=== PATIENT | male | born 1970 | race Caucasian/White ===

== ENCOUNTER 2017-01-18 08:22 | Emergency (ER) | payer OTHER ==
[2017-01-18] MEDS ORDERED: KETOROLAC TROMETHAMINE 60 MG/2 ML SDV IM ONE (09:32)
--- NOTE | 2017-01-18 09:35 | ER Document Report ---
ED General - General Chief Complaint: Abdominal Pain Stated Complaint: ABDOMINAL PAIN Time Seen by Provider: 01/18/17 09:04 Mode of Arrival: Ambulatory Information source: Patient, Parent Notes: Patient presents to the emergency department with complaints of lower abdominal pain thinking of possible kidney stone. Reports history of kidney stones a few years ago. Reports this pain started a couple days ago. Reports that spasms comes and goes. When it comes to 5/5. Reports some nausea with it denies fever vomiting diarrhea. Reports last bowel movement was yesterday but very small amount. Reports he has not had a normal bowel movement for 3 weeks. Mother reports patient has memory issues. She reports when he was younger he probably had aspbergers but was never diagnosed. Denies TBI or drug abuse. TRAVEL OUTSIDE OF THE [place] IN LAST 30 DAYS: No - Related Data Allergies/Adverse Reactions: No Known Allergies Allergy (Unverified 01/18/17 08:28) Past Medical History - General Information source: Patient - Social History Smoking Status: Unknown if Ever Smoked Cigarette use (# per day): No Frequency of alcohol use: Occasional Drug Abuse: Marijuana Lives with: Family Family History: None Patient has suicidal ideation: No Patient has homicidal ideation: No - Medical History Medical History: Negative Renal/ Medical History: Reports: Hx Kidney Stones. Denies: Hx Peritoneal Dialysis Past Surgical History: Reports: Other - hernia repair Physical Exam - Vital signs Vitals: Temp Pulse Resp BP Pulse Ox 98.5 F 93 20 155/95 H 98 01/18/17 08:27 01/18/17 08:27 01/18/17 08:27 01/18/17 08:27 01/18/17 08:27 - Notes Notes: PHYSICAL EXAMINATION: GENERAL: Well-appearing and in no acute distress NONTOXIC LOOKING HEAD: Atraumatic, normocephalic. EYES: Pupils equal round and reactive to light, extraocular movements intact, sclera anicteric, conjunctiva are normal. ENT: nares patent, oropharynx clear without exudates. Moist mucous membranes. NECK: Normal range of motion, supple without lymphadenopathy LUNGS: CTAB and equal. No wheezes rales or rhonchi. HEART: Regular rate and rhythm without murmurs ABDOMEN: Soft, LLQ tenderness. No guarding, no rebound BACK: Denies pain EXTREMITIES: Normal range of motion, no pitting edema. No cyanosis. NEUROLOGICAL: Cranial nerves grossly intact. Normal sensory/motor exams. PSYCH: Normal mood, normal affect. SKIN: Warm, Dry, normal turgor, no rashes or lesions noted Course - Re-evaluation Re-evalutation: 01/18/17 14:52 WBC 13.8, CT shows colitis possible diverticulitis. Patient does not admit to eating any recent fevers or varies. Patient reports he had a large bowel movement and his belly feels much better. Patient instructed on CT results plan of CARE Cipro Flagyl pain medication and the importance of follow-up with GI. Both mother and patient verbalized understanding. - Vital Signs Vital signs: Temp Pulse Resp BP Pulse Ox 100.0 F 86 19 130/80 H 98 01/18/17 13:04 01/18/17 13:04 01/18/17 13:04 01/18/17 13:04 01/18/17 13:04 - Laboratory Result Diagrams: 01/18/17 09:30 01/18/17 09:30 Laboratory results interpreted by me: 01/18/17 01/18/17 09:30 09:30 WBC 13.8 H RDW 14.2 H Seg Neutrophils % 85.4 H Lymphocytes % 6.7 L Absolute Neutrophils 11.8 H Urine Protein 30 H Urine Ketones TRACE H - Diagnostic Test Radiology reviewed: Image reviewed, Reports reviewed - Diagnostic report text EXAM DESCRIPTION: CT ABD/PELVIS WITH IV ORAL COMPLETED DATE/TIME: 01/18/2017 1 :57 pm REASON FOR STUDY: ABD PAIN LLQ COMPARISON: None. TECHNIQUE: CT scan of the abdomen and pelvis performed using helical scanning technique with dynamic intravenous contrast injection. Patient drank oral contrast. Images reviewed with lung, soft tissue, and bone windows. Reconstructed coronal and sagittal MPR images reviewed. Delayed images for evaluation of the urinary system also acquired. All images stored on PACS. All CT scanners at this facility use dose modulation, iterative reconstruction, and/or weight based dosing when appropriate to reduce radiation dose to as low as reasonably achievable (ALARA). [facility]: Dose Right [facility]: CareDose [facility]: Dose Right [facility]: Teradose 4D [facility]: [place] CONTRAST TYPE AND DOSE: 94mL Isovue 370- low osmolar. RENAL FUNCTION: Creatinine 0.7 RADIATION DOSE: 30.77mGy. LIMITATIONS: None. FINDINGS: A 15 cm long segment of marked colon wall thickening and luminal narrowing is present along the distal descending and proximal sigmoid colon. This is worrisome for acute diverticulitis or colitis from infectious or inflammatory etiology. Ischemic colitis is considered unlikely. There is adjacent trace cul-de-sac fluid and diffuse surrounding inflammation in the pericolic fat. No discrete abscess. No free intraperitoneal air. No evidence of bowel obstruction. These changes are best shown on coronal images 27-41, and axial images 66-77. LOWER CHEST: No significant findings. No nodules or infiltrates. LIVER: Normal size. No masses or dilated ducts. SPLEEN : Normal size. No focal lesions. PANCREAS: No masses. No significant calcifications. No adjacent inflammation or peripancreatic fluid collections. Pancreatic duct not dilated. GALLBLADDER: No identified stones by CT criteria. No inflammatory changes to suggest cholecystitis. ADRENAL GLANDS: No significant masses or asymmetry. RIGHT KIDNEY AND URETER: No solid masses. No significant calcifications. No hydronephrosis or hydroureter. LEFT KIDNEY AND URETER: No solid masses. No significant calcifications. No hydronephrosis or hydroureter. AORTA AND VESSELS: No aneurysm. No dissection. Renal arteries, SMA , celiac without stenosis. RETROPERITONEUM: No retroperitoneal adenopathy, hemorrhage or masses. BOWEL AND PERITONEAL CAVITY: Distal descending and proximal sigmoid colon wall thickening, luminal narrowing, surrounding inflammatory change worrisome for short segment of colitis or diverticulitis. No adjacent abscess or free intraperitoneal air. Small amount of cul-de-sac fluid. Oral contrast is seen throughout the remainder of the gastrointestinal tract without evidence of bowel obstruction. APPENDIX: Normal. PELVIS: Pelvic colon inflammatory change with cul-de-sac fluid as above. No adenopathy. Bladder unremarkable. ABDOMINAL WALL: No masses. No hernias. BONES: No significant or acute findings. OTHER: No other significant finding. IMPRESSION: Distal descending/ proximal sigmoid colon wall thickening, luminal narrowing, and surrounding inflammatory changes from colitis, likely due to diverticular disease. Infectious or inflammatory colitis is also possible. Ischemic colitis considered unlikely Discharge - Discharge Clinical Impression: Colitis, Elevated blood pressure reading Abdominal pain Qualifiers: Abdominal location: left lower quadrant Qualified Code(s): R10.32 - Left lower quadrant pain Condition: Stable Disposition: HOME, SELF-CARE Instructions: Oral Narcotic Medication ([facility]), Colitis, Nonspecific ([facility]), Ciprofloxacin ([facility]), Metronidazole ([facility]), Gastroenterology Additional Instructions: *You have been evaluated for abdominal pain, Colitis *Take medication as prescribed *avoid foods with nuts, seeds *Follow up with a primary care provider within one week *Follow up with gastroenterology for evaluation *Return to ED for worsening condition, changes, needs, concerns *Return to ED if not better in 24 hours *Monitor your blood pressure. Your blood pressure was elevated today. This may be because you were anxious, in pain or because you need medication. It is important to follow up with your primary care provider for full evaluation. Prescriptions: Ciprofloxacin HCl [Cipro 500 mg Tablet] 500 mg PO BID #20 tablet Metronidazole [Flagyl 500 mg Tablet] 500 mg PO TID #21 tablet Oxycodone HCl/Acetaminophen [Percocet 5-325 mg Tablet] 1 - 2 tab PO ASDIR PRN # 15 tablet PRN Reason: Forms: Elevated Blood Pressure
[2017-01-18 09:44] LABS: ABSOLUTE BASOPHILS # (AUTO) 0.1 10^3/uL (0.0-0.2); ABSOLUTE LYMPHOCYTES (AUTO) 0.9 10^3/uL (0.5-4.7); ABSOLUTE NEUT (AUTO) 11.8 10^3/uL (1.7-8.2); BASOPHILS % (AUTO) 0.5 % (0-2); EOSINOPHILS % (AUTO) 0.3 % (0-6); HEMATOCRIT 42.4 % (37.9-51.0); HEMOGLOBIN 14.2 g/dL (13.5-17.0); HGB HCT DIFFERENCE 0.2; LYMPHOCYTES % (AUTO) 6.7 % (13-45); MEAN CORPUSCULAR HEMOGLOBIN 29.5 pg (27.0-33.4); MEAN CORPUSCULAR HGB CONC 33.5 g/dL (32.0-36.0); MEAN CORPUSCULAR VOLUME 88 fl (80-97); MONOCYTES % (AUTO) 7.1 % (3-13); RED BLOOD COUNT 4.81 10^6/uL (4.35-5.55); RED CELL DISTRIBUTION WIDTH 14.2 % (11.5-14.0); SEGMENTED NEUTROPHILS % (AUTO) 85.4 % (42-78); WHITE BLOOD COUNT 13.8 10^3/uL (4.0-10.5)
[2017-01-18 09:51] LABS: APPEARANCE,URINE CLEAR; BILIRUBIN,URINE NEGATIVE (NEGATIVE); GLUCOSE, URINE NEGATIVE (NEGATIVE); KETONES,URINE TRACE mg/dL (NEGATIVE); LEUKOCYTE ESTERASE,URINE NEGATIVE (NEGATIVE); NITRITE,URINE NEGATIVE (NEGATIVE); PROTEIN,URINE 30 mg/dL (NEGATIVE); URINE SPECIFIC GRAVITY 1.028; UROBILINOGEN,URINE NEGATIVE mg/dL (<2.0)
[2017-01-18 10:10] LABS: ALANINE AMINOTRANSFERASE 31 U/L (21-72); ALBUMIN 3.8 g/dL (3.5-5.0); ALKALINE PHOSPHATASE 68 U/L (38-126); ANION GAP 12 (5-19); ASPARTATE AMINO TRANSFERASE 17 U/L (17-59); BILIRUBIN,DIRECT 0.2 mg/dL (0.0-0.4); BLOOD UREA NITROGEN 11 mg/dL (7-20); CARBON DIOXIDE 26 mmol/L (22-30); CHLORIDE 103 mmol/L (98-107); CREATININE RESULT 0.68 mg/dL (0.52-1.25); GLUCOSE 109 mg/dL (75-110); LIPASE 119.6 U/L (23-300); POTASSIUM 4.2 mmol/L (3.6-5.0); SODIUM 141.4 mmol/L (137-145)
[2017-01-18] MEDS ORDERED: NORMAL SALINE 1000 ML 1,000 ML IV ONE (11:06)
--- NOTE | 2017-01-18 14:26 | RADIOLOGY REPORT (SQ) ---
EXAM DESCRIPTION: CT ABD/PELVIS WITH IV ORAL COMPLETED DATE/TIME: 01/18/2017 1:57 pm REASON FOR STUDY: ABD PAIN LLQ COMPARISON: None. TECHNIQUE: CT scan of the abdomen and pelvis performed using helical scanning technique with dynamic intravenous contrast injection. Patient drank oral contrast. Images reviewed with lung, soft tissue , and bone windows. Reconstructed coronal and sagittal MPR images reviewed. Delayed images for evalua tion of the urinary system also acquired. All images stored on PACS. All CT scanners at this facility use dose modulation, iterative reconstruction, and/or weight based d osing when appropriate to reduce radiation dose to as low as reasonably achievable (ALARA). [facility]: Dose Right [facility]: CareDose [facility]: Dose Right [facility]: Teradose 4D [facility]: [address] CONTRAST TYPE AND DOSE: 94mL Isovue 370- low osmolar. RENAL FUNCTION: Creatinine 0.7 RADIATION DOSE: 30.77mGy. LIMITATIONS: None. FINDINGS: A 15 cm long segment of marked colon wall thickening and luminal narrowing is present rebekah g the distal descending and proximal sigmoid colon. This is worrisome for acute diverticulitis or co litis from infectious or inflammatory etiology. Ischemic colitis is considered unlikely. There is a djacent trace cul-de-sac fluid and diffuse surrounding inflammation in the pericolic fat. No discret e abscess. No free intraperitoneal air. No evidence of bowel obstruction. These changes are best s hown on coronal images 27-41, and axial images 66-77. LOWER CHEST: No significant findings. No nodules or infiltrates. LIVER: Normal size. No masses or dilated ducts. SPLEEN: Normal size. No focal lesions. PANCREAS: No masses. No significant calcifications. No adjacent inflammation or peripancreatic fluid collections. Pancreatic duct not dilated. GALLBLADDER: No identified stones by CT criteria. No inflammatory changes to suggest cholecystitis. ADRENAL GLANDS: No significant masses or asymmetry. RIGHT KIDNEY AND URETER: No solid masses. No significant calcifications. No hydronephrosis or hyd roureter. LEFT KIDNEY AND URETER: No solid masses. No significant calcifications. No hydronephrosis or hydr oureter. AORTA AND VESSELS: No aneurysm. No dissection. Renal arteries, SMA, celiac without stenosis. RETROPERITONEUM: No retroperitoneal adenopathy, hemorrhage or masses. BOWEL AND PERITONEAL CAVITY: Distal descending and proximal sigmoid colon wall thickening, luminal na rrowing, surrounding inflammatory change worrisome for short segment of colitis or diverticulitis. N o adjacent abscess or free intraperitoneal air. Small amount of cul-de-sac fluid. Oral contrast is seen throughout the remainder of the gastrointestinal tract without evidence of bowel obstruction. APPENDIX: Normal. PELVIS: Pelvic colon inflammatory change with cul-de-sac fluid as above. No adenopathy. Bladder unr emarkable. ABDOMINAL WALL: No masses. No hernias. BONES: No significant or acute findings. OTHER: No other significant finding. IMPRESSION: Distal descending/ proximal sigmoid colon wall thickening, luminal narrowing, and surrou nding inflammatory changes from colitis, likely due to diverticular disease. Infectious or inflammat ory colitis is also possible. Ischemic colitis considered unlikely TECHNICAL DOCUMENTATION: JOB ID: [id number] Quality ID # [id number]: Final reports with documentation of one or more dose reduction techniques (e.g., Au tomated exposure control, adjustment of the mA and/or kV according to patient size, use of iterative reconstruction technique) 2010 [employer]- All Rights Reserved
[2017-01-18 15:27] VITALS: BP 148/80
== END 2017-01-18 15:27 | disposition home or self-care (01) ==
LOC: ER 08:22
DX: K52.9 Noninfective gastroenteritis and colitis, unspecified (principal); R03.0 Elevated blood-pressure reading, without diagnosis of hypertension; R10.32 Left lower quadrant pain; Z87.442 Personal history of urinary calculi
CPT/HCPCS: 99284; 96372; 96360; 36415; 83690; 85025; 80053; 81001; 74177; J1885; J7030

== ENCOUNTER 2020-01-21 12:15 | Emergency (ER) | payer OTHER ==
[2020-01-21] MEDS ORDERED: PIPERACILLIN SODIUM/TAZOBACTAM 4.5 GM in NORMAL SALINE 100 ML IV SCH (12:30)
--- NOTE | 2020-01-21 12:30 | ER Document Report ---
ED Medical Screen (RME) - General Chief Complaint: Abdominal Pain Stated Complaint: ABDOMINAL PAIN Time Seen by Provider: 01/21/20 12:28 Information source: Patient TRAVEL OUTSIDE OF THE [place] IN LAST 30 DAYS: No - HPI Patient complains to provider of: Abdominal pain feels like his heart is racing Onset/Duration: Intermittent, Persistent, Waxing and waning Notes: 01/21/20 12:28 There is a 49-year-old male with a history of colitis who is felt as though he had some constipation he then used some prune juice for that he had significant diarrhea last night he vomits every time he tries to take an oral fluid he is hypotensive tachycardic with a fever. And belly pain 01/21/20 12:29 I greeted and performed a rapid initial assessment of this patient. Comprehensive ED assessment and evaluation of the patient, analysis of test results and completion of the medical decision making process will be conducted by additional ED providers. - Related Data Allergies/Adverse Reactions: Iodinated Contrast Media Allergy (Verified 01/21/20 12:24) Past Medical History Renal/ Medical History: Reports: Hx Kidney Stones. Denies: Hx Peritoneal Dialysis Past Surgical History: Reports: Other - hernia repair Physical Exam - Vital signs Vitals: Temp Pulse Resp BP Pulse Ox 102.6 F H 110 H 20 126/75 H 97 01/21/20 12:01/21/20 12:01/21/20 12:01/21/20 12:01/21/20 12:22 Course - Vital Signs Vital signs: Temp Pulse Resp BP Pulse Ox 102.6 F H 110 H 20 126/75 H 97 01/21/20 12:22 01/21/20 12:01/21/20 12:01/21/20 12:01/21/20 12:22
[2020-01-21] MEDS ORDERED: NORMAL SALINE 1000 ML 1,000 ML IV PRN (12:33)
[2020-01-21] MEDS ORDERED: DIPHENHYDRAMINE HCL 50 MG/ML VIAL IV ONE (13:24)
[2020-01-21] MEDS ORDERED: METHYLPREDNISOLONE INJ 40 MG/1 ML SDV IV ONE (13:24)
[2020-01-21] MEDS ORDERED: ACETAMINOPHEN 650 MG SUPP.RECT PR ONE (13:25)
[2020-01-21] MEDS ORDERED: FAMOTIDINE INJ/PF 20 MG/2 ML SDV IV ONE (13:25)
[2020-01-21 13:36] LABS: HEMOGLOBIN 13.5 g/dL (13.5-17.0); MEAN CORPUSCULAR HEMOGLOBIN 30.5 pg (27.0-33.4); MEAN CORPUSCULAR HGB CONC 34.6 g/dL (32.0-36.0); MEAN CORPUSCULAR VOLUME 88 fl (80-97); PLATELET COUNT 372 10^3/uL (150-450); RED BLOOD COUNT 4.42 10^6/uL (4.35-5.55); RED CELL DISTRIBUTION WIDTH 12.9 % (11.5-14.0); WHITE BLOOD COUNT 19.8 10^3/uL (4.0-10.5)
[2020-01-21] MEDS ORDERED: ONDANSETRON HCL INJ/PF 4 MG/2 ML SDV IV ONE (13:38)
--- NOTE | 2020-01-21 13:41 | ER Document Report ---
ED GI/ - General Chief Complaint: Abdominal Pain Stated Complaint: ABDOMINAL PAIN Time Seen by Provider: 01/21/20 12:28 Notes: CHIEF COMPLAINT: Abdominal pain and fever HPI: 49-year-old male with history of colitis and kidney stones presenting to the emergency department complaining of intermittent lower abdominal pain over the last 3 weeks after [place] the [place]. Has had intermittent episodes of diarrhea. Patient states initially he felt constipated so he has been taking prune juice every day. Has had intermittent fevers over the last 3 weeks. Has not seen a PCP for evaluation of symptoms. States that he was diagnosed with colitis 3 years ago but did see a rn military at that time and had a colonoscopy that he states was normal. ROS: See HPI - all other systems were reviewed and are otherwise negative Constitutional: Positive fever Eyes: no drainage, no blurred vision ENT: no runny nose, no sore throat Cardiovascular: no chest pain Resp: no SOB, no cough GI: no vomiting, positive diarrhea, positive abdominal pain : no dysuria Integumentary: no rash Allergy: no hives Musculoskeletal: no extremity pain or swelling Neurological: no numbness/tingling, no weakness MEDICATIONS: I agree with the patient medications as charted by the RN. ALLERGIES: I agree with the allergies as charted by the RN. PAST MEDICAL HISTORY/PAST SURGICAL HISTORY: Reviewed and agree as charted by RN. SOCIAL HISTORY: Reviewed and agree as charted by RN. FAMILY HISTORY: No significant familial comorbid conditions directly related to patient complaint EXAM: Reviewed vital signs as charted by RN. CONSTITUTIONAL: Alert and oriented and responds appropriately to questions. Well-appearing; well-nourished HEAD: Normocephalic; atraumatic EYES: PERRL; Conjunctivae clear, sclerae non-icteric ENT: normal nose; no rhinorrhea; moist mucous membranes; pharynx without lesions noted, no uvula edema or deviation, no tonsillar hypertrophy, phonation normal NECK: Supple without meningismus; non-tender; no cervical lymphadenopathy, no masses CARD: Mild tachycardia; no murmurs, no clicks, no rubs, no gallops; symmetric distal pulses RESP: Normal chest excursion without splinting or tachypnea; breath sounds clear and equal bilaterally; no wheezes, no rhonchi, no rales, pulse oximetry 98% on room air not hypoxic ABD/GI: Normal bowel sounds; non-distended; soft, mild tenderness in the right lower quadrant and suprapubic region on palpation, no rebound, no guarding; no palpable organomegaly or masses. BACK: The back appears normal and is non-tender to palpation, there is no CVA tenderness EXT: Normal ROM in all joints; non-tender to palpation; no cyanosis, no effusions, no edema SKIN: Normal color for age and race; warm; dry; good turgor; no acute lesions noted NEURO: Moves all extremities equally; Motor and sensory function intact PSYCH: The patient's mood and manner are appropriate. Grooming and personal hygiene are appropriate. MDM: 49-year-old male with 3 weeks of intermittent abdominal pain and fever. History of colitis and kidney stones. Does report that his urine was very dark intermittently as well. Has fever of 102.6 here today in the ER. States his allergy to contrast media is to the oral contrast media which gave him severe abdominal pain. Did not have issues with IV dye in the past. Will give premedication with Solu-Medrol, Pepcid, Benadryl. States he never had any rash or difficulty with his breathing with IV dye. Patient has been placed on the sepsis protocol given the fever and abdominal pain TRAVEL OUTSIDE OF THE [place] IN LAST 30 DAYS: No - Related Data Allergies/Adverse Reactions: Iodinated Contrast Media Allergy (Verified 01/21/20 12:24) Past Medical History - General Information source: Patient - Social History Smoking Status: Never Smoker Family History: None Patient has homicidal ideation: No Renal/ Medical History: Reports: Hx Kidney Stones. Denies: Hx Peritoneal Dialysis Past Surgical History: Reports: Other - hernia repair Physical Exam - Vital signs Vitals: Temp Pulse Resp BP Pulse Ox 102.6 F H 110 H 20 126/75 H 97 01/21/20 12:22 01/21/20 12:22 01/21/20 12:22 01/21/20 12:22 01/21/20 12:22 Course - Re-evaluation Re-evalutation: 01/21/20 15:[address] is concerning for acute cystitis and also early pyelonephritis. Patient has a moderate leukocytosis and significant UTI. Spoke with Dr. Byrnes attending. Spoke with the patient at length. Given the concerns I did advise admission for the patient. Patient is uncircumcised. Patient is aware that male UTIs and especially pyelonephritis is unusual and require significant aggressive treatment. Patient is not willing to be admitted to the hospital at this time. He does not give a definitive reason as to why he is unwilling to stay but states he would prefer to go home with oral antibiotics. I did make the patient aware of the increased risk of failing outpatient therapy and becoming significantly sicker without admission for IV antibiotics at this time and he verbalizes understanding. He is aware that he may return at any time s hould his condition progressively worsen to be reevaluated. - Vital Signs Vital signs: Temp Pulse Resp BP Pulse Ox 102.5 F H 110 H 16 119/72 97 01/21/20 15:04 01/21/20 12:22 01/21/20 15:01 01/21/20 15:00 01/21/20 15:01 - Laboratory Result Diagrams: 01/21/20 13:12 01/21/20 13:12 Laboratory results interpreted by me: 01/21/20 01/21/20 01/21/20 13:12 13:12 14:26 WBC 19.8 H Seg Neuts % (Manual) 87 H Band Neutrophils % 1 L Lymphocytes % (Manual) 5 L Abs Neuts (Manual) 17.4 H Sodium 132.3 L Glucose 139 H Urine Protein 100 H Urine Blood MODERATE H Leukocyte Esterase Rfl LARGE H Discharge - Discharge Clinical Impression: Fever in adult, Acute pyelonephritis Condition: Fair Disposition: HOME, SELF-CARE Instructions: Pyelonephritis ([facility]) Additional Instructions: You have declined admission to the hospital today. It was noted on your imaging studies and lab work that you likely have an early kidney infection, this usually requires fairly aggressive treatment to resolve. As you do not wish to be admitted to the hospital at this time please take the antibiotics as prescribed and follow-up closely with a primary care provider for reevaluation. You will likely have fever for the next 24 to 48 hours make sure you are taking Tylenol or ibuprofen consistently for the fevers make sure you hydrate well. If at any time you feel like your condition is worsening please return to the hospital for reevaluation of your symptoms as discussed Prescriptions: Ciprofloxacin HCl [Cipro 500 mg Tablet] 500 mg PO BID #20 tablet Ibuprofen [Motrin 600 Mg Tablet] 600 mg PO Q6H #15 tablet Referrals: AMANDA LAWRENCE MD [ACTIVE STAFF] - Follow up as needed
[2020-01-21 13:54] LABS: ALBUMIN 3.5 g/dL (3.5-5.0); ALKALINE PHOSPHATASE 70 U/L (38-126); ANION GAP 8 (5-19); ASPARTATE AMINO TRANSFERASE 18 U/L (17-59); BILIRUBIN,TOTAL 1.3 mg/dL (0.2-1.3); BLOOD UREA NITROGEN 10 mg/dL (7-20); CALCIUM 8.7 mg/dL (8.4-10.2); CARBON DIOXIDE 26 mmol/L (22-30); CHLORIDE 98 mmol/L (98-107); CREATINE KINASE 77 U/L (55-170); GLUCOSE 139 mg/dL (75-110); POTASSIUM 3.8 mmol/L (3.6-5.0); TOTAL PROTEIN 6.7 g/dL (6.3-8.2)
[2020-01-21 14:03] LABS: ABSOLUTE MONOCYTES # (MANUAL) 1.4 10^3/uL (0.1-1.4); BAND NEUTROPHILS % (MANUAL) 1 % (3-5); BASOPHILS % (MANUAL) 0 % (0-2); EOSINOPHILS % (MANUAL) 0 % (0-6); LYMPHOCYTES % (MANUAL) 5 % (13-45); MONOCYTES % (MANUAL) 7 % (3-13); SEGMENTED NEUTROPHILS % (MAN) 87 % (42-78); TOTAL CELLS COUNTED 100
[2020-01-21 14:04] LABS: RBC MORPHOLOGY COMMENT NORMO-CYTIC/CHROMIC; TOXIC GRANULATION SLIGHT
[2020-01-21 14:05] LABS: PLATELET COMMENT ADEQUATE
[2020-01-21 14:48] LABS: APPEARANCE,URINE SLIGHTLY-CLOUDY; BILIRUBIN,URINE NEGATIVE (NEGATIVE); COLOR,URINE YELLOW; GLUCOSE, URINE NEGATIVE (NEGATIVE); KETONES,URINE NEGATIVE (NEGATIVE); PROTEIN,URINE 100 mg/dL (NEGATIVE); URINE SPECIFIC GRAVITY 1.011; UROBILINOGEN,URINE NEGATIVE mg/dL (<2.0)
--- NOTE | 2020-01-21 14:59 | RADIOLOGY REPORT (SQ) ---
EXAM DESCRIPTION: CT ABD/PELVIS WITH IV ONLY IMAGES COMPLETED DATE/TIME: 01/21/2020 2:40 pm REASON FOR STUDY: sepsis COMPARISON: CT of the abdomen and pelvis with contrast from 01/18/2017. TECHNIQUE: CT scan of the abdomen and pelvis performed using helical scanning technique with dynamic intravenous contrast injection. No oral contrast. Images reviewed with lung, soft tissue, and bone windows. Reconstructed coronal and sagittal MPR images reviewed. Delayed images for evaluation of the urinary system also acquired. All images stored on PACS. All CT scanners at this facility use dose modulation, iterative reconstruction, and/or weight based d osing when appropriate to reduce radiation dose to as low as reasonably achievable (ALARA). [facility]: Dose Right [facility]: CareDose [facility]: Dose Right [facility]: Teradose 4D [facility]: [place] CONTRAST TYPE AND DOSE: 97 mL Omnipaque 350- low osmolar. RENAL FUNCTION: Creatinine 0.88 milligrams/deciliter. RADIATION DOSE: CT Rad equipment meets quality standard of care and radiation dose reduction techniq ues were employed. CTDIvol: 7.0 - 9.8 mGy. DLP: 929 mGy-cm. LIMITATIONS: None. FINDINGS: LOWER CHEST: No acute findings. LIVER: The morphology of the liver is noncirrhotic. The portal veins are patent. There is no hepati c mass. SPLEEN: No splenomegaly or splenic mass. PANCREAS: No acute gross abnormality of the pancreas. GALLBLADDER: The gallbladder is contracted. ADRENAL GLANDS: No mass or asymmetry. RIGHT KIDNEY AND URETER: The urothelial lining of the renal pelvis and ureter is thickened and there is mild pelvicaliectasis. There is no associated nephrolithiasis or ureterolithiasis. There is also no perfusion parenchymal defect or delayed parenchymal enhancement. There is no abscess or perineph joana collection. LEFT KIDNEY AND URETER: No solid mass, hydronephrosis, nephrolithiasis, intradural or ureterolithiasi s. AORTA AND VESSELS: No aneurysm of the abdominal aorta. Variant circumaortic left renal vein. RETROPERITONEUM: No retroperitoneal adenopathy, hemorrhage or mass. BOWEL AND PERITONEAL CAVITY: Colonic diverticulosis without diverticulitis. There is no bowel obstru ction, bowel wall thickening or pericolonic/ perienteric inflammation. There is no mesenteric adenop athy, free intraperitoneal fluid or mesenteric/ omental inflammation. APPENDIX: Normal. PELVIS: The wall of the urinary bladder is diffusely thickened and there is associated stranding of t he pericystic fat. The prostate gland measures 4.6 cm in transverse diameter. ABDOMINAL WALL: No abdominal wall mass or hernia. BONES: No acute findings. OTHER: No other finding. IMPRESSION: Circumferential thickening of the urinary bladder wall, stranding of the pericystic fat and thickening/ hyperenhancement of the urothelial lining of the right renal pelvis and right ureter. Clinical correlation to exclude an acute cystitis and ascending urinary tract infection is recommen ded. TECHNICAL DOCUMENTATION: JOB ID: [id number] Quality ID # [id number]: Final reports with documentation of one or more dose reduction techniques (e.g., Au tomated exposure control, adjustment of the mA and/or kV according to patient size, use of iterative reconstruction technique) 2010 [employer]- All Rights Reserved Reading location - IP/workstation name: [email or web address]
[2020-01-21 15:04] VITALS: BP 119/72
[2020-01-21] MEDS ORDERED: IBUPROFEN 600 MG TABLET PO ONE (15:12)
[2020-01-21] MEDS ORDERED: CIPROFLOXACIN 400 MG/D5W RTU 400 MG/200 ML RTUPB IV ONE (15:20)
--- NOTE | 2020-01-22 20:48 | EKG REPORT ---
SEVERITY:- NORMAL ECG - SINUS RHYTHM : Confirmed by: Karen Treviño 22-Jan-2020 20:46:59
== END 2020-01-21 17:22 | disposition home or self-care (01) ==
LOC: ER 12:15
DX: N10 Acute pyelonephritis (principal); R50.9 Fever, unspecified; R19.7 Diarrhea, unspecified; R10.30 Lower abdominal pain, unspecified; R10.813 Right lower quadrant abdominal tenderness; Z87.19 Personal history of other diseases of the digestive system; Z87.442 Personal history of urinary calculi; Z91.041 Radiographic dye allergy status
CPT/HCPCS: 99284; 96375; 96365; 96367; 36415; 87040; 87086; 82550; 83605; 85025; 87077; 80053; 81001; 87150 ×26; 74177; 93005; 93010; J1200; J2920; J2405; J7050; J7030; J0744; S0028; J2543; 87186

== ENCOUNTER 2020-01-22 06:01 | Inpatient (IN) | payer OTHER ==
[2020-01-22 08:17] LABS: ALBUMIN 3.3 g/dL (3.5-5.0); ALKALINE PHOSPHATASE 69 U/L (38-126); ANION GAP 7 (5-19); ASPARTATE AMINO TRANSFERASE 16 U/L (17-59); BILIRUBIN,TOTAL 0.7 mg/dL (0.2-1.3); BLOOD UREA NITROGEN 15 mg/dL (7-20); CALCIUM 8.5 mg/dL (8.4-10.2); CARBON DIOXIDE 27 mmol/L (22-30); CHLORIDE 102 mmol/L (98-107); GLUCOSE 114 mg/dL (75-110); TOTAL PROTEIN 6.5 g/dL (6.3-8.2)
[2020-01-22 08:23] LABS: HEMATOCRIT 37.2 % (37.9-51.0); HEMOGLOBIN 12.9 g/dL (13.5-17.0); MEAN CORPUSCULAR HEMOGLOBIN 30.7 pg (27.0-33.4); MEAN CORPUSCULAR HGB CONC 34.5 g/dL (32.0-36.0); MEAN CORPUSCULAR VOLUME 89 fl (80-97); PLATELET COUNT 354 10^3/uL (150-450); RED CELL DISTRIBUTION WIDTH 13.1 % (11.5-14.0); WHITE BLOOD COUNT 18.5 10^3/uL (4.0-10.5)
[2020-01-22] MEDS ORDERED: NORMAL SALINE 1000 ML 1,000 ML IV ONE (08:32)
[2020-01-22] MEDS ORDERED: LEVOFLOXACIN 750 MG/D5W RTU 750 MG/150 ML RTUPB IV ONE (08:34)
[2020-01-22 08:49] LABS: ABSOLUTE LYMPHOCYTES# (MANUAL) 1.7 10^3/uL (0.5-4.7); ABSOLUTE MONOCYTES # (MANUAL) 0.7 10^3/uL (0.1-1.4); BASOPHILS % (MANUAL) 0 % (0-2); EOSINOPHILS % (MANUAL) 0 % (0-6); LYMPHOCYTES % (MANUAL) 9 % (13-45); MONOCYTES % (MANUAL) 4 % (3-13); PLATELET COMMENT ADEQUATE; RBC MORPHOLOGY COMMENT NORMO-CYTIC/CHROMIC; SEGMENTED NEUTROPHILS % (MAN) 87 % (42-78); TOTAL CELLS COUNTED 100
[2020-01-22 09:09] LABS: APPEARANCE,URINE SLIGHTLY-CLOUDY; BILIRUBIN,URINE NEGATIVE (NEGATIVE); COLOR,URINE YELLOW; GLUCOSE, URINE NEGATIVE (NEGATIVE); KETONES,URINE NEGATIVE (NEGATIVE); LEUKOCYTE ESTERASE,URINE MODERATE (NEGATIVE); NITRITE,URINE NEGATIVE (NEGATIVE); PROTEIN,URINE 100 mg/dL (NEGATIVE); URINE SPECIFIC GRAVITY 1.021; UROBILINOGEN,URINE NEGATIVE mg/dL (<2.0)
--- NOTE | 2020-01-22 12:13 | ER Document Report ---
Entered by ERIC BROWNING SCRIBE 01/22/20 0828 Acting as scribe for:FAIZA SANDERS MD ED General - General Chief Complaint: Other Stated Complaint: UTI Time Seen by Provider: 01/22/20 07:48 Information source: Patient Notes: This 49-year-old male presents to the emergency department after receiving a call this morning about positive lab cultures that were performed yesterday. Patient explains that he is feeling much better after starting the antibiotic he was given yesterday. Patient states that he was able to eat a full meal last night without vomiting. Patient reports mild nausea, dysuria and dark urine. Patient denies abdominal pain, fever, chills, throat pain, penile discharge and vomiting. TRAVEL OUTSIDE OF THE [place] IN LAST 30 DAYS: No - Related Data Allergies/Adverse Reactions: Iodinated Contrast Media Allergy (Verified 01/21/20 12:24) Past Medical History - General Information source: Patient - Social History Smoking Status: Never Smoker Cigarette use (# per day): No Chew tobacco use (# tins/day): No Frequency of alcohol use: None Drug Abuse: Marijuana Family History: None Patient has homicidal ideation: No Renal/ Medical History: Reports: Hx Kidney Stones Past Surgical History: Reports: Other - hernia repair Review of Systems - Review of Systems Constitutional: See HPI. denies: Chills EENT: See HPI. denies: Throat pain Cardiovascular: No symptoms reported Respiratory: See HPI. denies: Cough Gastrointestinal: See HPI. denies: Abdominal pain Genitourinary: See HPI, Dysuria Male Genitourinary: See HPI. denies: Penile discharge Musculoskeletal: No symptoms reported Skin: No symptoms reported Hematologic/Lymphatic: No symptoms reported Neurological/Psychological: No symptoms reported -: Yes All other systems reviewed and negative Physical Exam - Vital signs Vitals: Temp Pulse Resp BP Pulse Ox 97.9 F 92 16 126/81 H 100 01/22/20 06:06 01/22/20 06:06 01/22/20 06:06 01/22/20 06:06 01/22/20 06:06 - Notes Notes: Physical Exam: General: Alert, appears well. HEENT: Normocephalic. Atraumatic. PERRL. Extraocular movements intact. Oropharynx clear. Neck: Supple. Non-tender. Respiratory: No respiratory distress. Clear and equal breath sounds bilaterally. Cardiovascular: Regular rate and rhythm. Abdominal: Normal Inspection. Non-tender. No distension. Normal Bowel Sounds. Back: No gross abnormalities. No CVA tenderness to percussion. Extremities: Moves all four extremities. Upper extremities: Normal inspection. Normal ROM. Lower extremities: Normal inspection. No edema. Normal ROM. Neurological: Normal cognition. AAOx4. Normal speech. Psychological: Normal affect. Normal Mood. Skin: Warm. Dry. Normal color. Course - Re-evaluation Re-evalutation: 01/22/20 12:10 Patient resting comfortably at this time not showing any signs of distress. - Vital Signs Vital signs: Temp Pulse Resp BP Pulse Ox 99.4 F 76 18 125/71 99 01/22/20 11:05 01/22/20 11:05 01/22/20 11:05 01/22/20 11:05 01/22/20 11:05 - Laboratory Result Diagrams: 01/22/20 07:45 01/22/20 07:45 Laboratory results interpreted by me: 01/22/20 01/22/20 01/22/20 07:45 07:45 08:50 WBC 18.5 H RBC 4.20 L Hgb 12.9 L Hct 37.2 L Seg Neuts % (Manual) 87 H Lymphocytes % (Manual) 9 L Abs Neuts (Manual) 16.1 H Sodium 135.6 L Glucose 114 H AST 16 L Albumin 3.3 L Urine Protein 100 H Urine Blood MODERATE H Ur Leukocyte Esterase MODERATE H Discharge - Discharge Clinical Impression: Urinary tract infection, Leukocytosis, Positive blood cultures Condition: Fair Disposition: ADMITTED INPATIENT Admitting Provider: Coco (Hospitalist) Unit Admitted: Medical Floor I personally performed the services described in the documentation, reviewed and edited the documentation which was dictated to the scribe in my presence, and it accurately records my words and actions.
[2020-01-22] MEDS ORDERED: MAG HYDROX/AL HYDROX/SIMETH SUSP 30 ML UDCUP PO PRN (12:17)
[2020-01-22] MEDS ORDERED: ONDANSETRON HCL INJ/PF 4 MG/2 ML SDV IV PRN (12:17)
[2020-01-22] MEDS ORDERED: MAGNESIUM HYDROXIDE SUSP 30 ML UDCUP PO PRN (12:17)
[2020-01-22] MEDS ORDERED: ALBUTEROL SULFATE 0.083% NEB 2.5 MG/3 ML AMPUL NEB PRN (12:17)
[2020-01-22] MEDS: NORMAL SALINE 1000 ML 1,000 ML IV PRN ×2 (12:29→22:05)
--- NOTE | 2020-01-22 13:39 | PDOC H&P ---
History of Present Illness Admission Date/PCP: 01/22/20 12:39 Patient complains of: abnormal lab results History of Present Illness: KATHERYN COREAS is a 49 year old male with a past medical history significant for hyperlipidemia. Patient has presented to the emergency department 2 times over the prior week for UTI symptoms; discharged home each time with oral a ntibiotics. However, blood cultures obtained yesterday (1 bottle each set) are now growing gram-negative rods. Therefore, the patient was called back to the emergency department to be admitted for bacteremia. Evaluation emergency department revealed stable vital signs, leukocytosis (WBC 18.5), unremarkable chemistry, and urine suggestive of UTI. Lactic acid negative x3. He is referred to the hospitalist service for admission and management of the above-stated complaints and findings. Past Medical History Cardiac Medical History: Reports: Hyperlipidema Denies: Congestive Heart Failure, Myocardial Infarction, Hypertension Pulmonary Medical History: Reports: None EENT Medical History: Reports: None Neurological Medical History: Reports: None Endocrine Medical History: Reports: None Renal/ Medical History: Reports: None Malignancy Medical History: Reports: None GI Medical History: Reports: None Musculoskeltal Medical History: Reports: None Skin Medical History: Reports: None Psychiatric Medical History: Reports: None Traumatic Medical History: Reports: None Hematology: Reports: Anemia Infectious Medical History: Reports: None Past Surgical History Past Surgical History: Reports: Herniorrhaphy Social History Information Source: Patient Lives with: Alone Smoking Status: Never Smoker Frequency of Alcohol Use: Rare Hx Recreational Drug Use: Yes Drugs: Marijuana Hx Prescription Drug Abuse: No - Advance Directive Resuscitation Status: Full Code Family History Family History: Hyperlipidemia, Hypertension, Other - Heart Failure, obesity Parental Family History Reviewed: Yes Children Family History Reviewed: Yes Sibling(s) Family History Reviewed.: Yes Medication/Allergy Home Medications: Ciprofloxacin HCl [Cipro 500 mg Tablet] 500 mg PO BID #20 tablet 01/18/17 Metronidazole [Flagyl 500 mg Tablet] 500 mg PO TID #21 tablet 01/18/17 Oxycodone HCl/Acetaminophen [Percocet 5-325 mg Tablet] 1 - 2 tab PO ASDIR PRN #15 tablet 01/18/17 Ciprofloxacin HCl [Cipro 500 mg Tablet] 500 mg PO BID #20 tablet 01/21/20 Ibuprofen [Motrin 600 Mg Tablet] 600 mg PO Q6H #15 tablet 01/21/20 Allergies/Adverse Reactions: Iodinated Contrast Media Allergy (Verified 01/21/20 12:24) Review of Systems Constitutional: PRESENT: anorexia, fatigue. ABSENT: chills, fever(s), headache(s), weight gain, weight loss Eyes: ABSENT: visual disturbances Ears: ABSENT: hearing changes Cardiovascular: ABSENT: chest pain, dyspnea on exertion, edema, orthropnea, pal pitations Respiratory: ABSENT: cough, hemoptysis Gastrointestinal: ABSENT: abdominal pain, constipation, diarrhea, hematemesis, hematochezia, nausea, vomiting Genitourinary: PRESENT: other - Right flank pain. ABSENT: dysuria, hematuria Musculoskeletal: ABSENT: joint swelling Integumentary: ABSENT: rash, wounds Neurological: ABSENT: abnormal gait, abnormal speech, confusion, dizziness, focal weakness, syncope Psychiatric: ABSENT: anxiety, depression, homidical ideation, suicidal ideation Endocrine: ABSENT: cold intolerance, heat intolerance, polydipsia, polyuria Hematologic/Lymphatic: ABSENT: easy bleeding, easy bruising Physical Exam Vital Signs: Temp Pulse Resp BP Pulse Ox 99.4 F 76 18 125/71 99 01/22/20 11:05 01/22/20 11:05 01/22/20 11:05 01/22/20 11:05 01/22/20 11:05 Intake & Output 01/21/20 01/22/20 01/23/20 06:59 06:59 06:59 Intake Total 1150 Balance 1150 Weight 85.1 kg General appearance: PRESENT: no acute distress, disheveled, well-developed, well-nourished Head exam: PRESENT: atraumatic, normocephalic Eye exam: PRESENT: conjunctiva pink, EOMI, PERRLA. ABSENT: scleral icterus Mouth exam: PRESENT: moist, tongue midline Respiratory exam: PRESENT: clear to auscultation pippa, symmetrical, unlabored. ABSENT: rales, rhonchi, wheezes Cardiovascular exam: PRESENT: RRR, +S1, +S2. ABSENT: diastolic murmur, rubs, systolic murmur Pulses: PRESENT: normal dorsalis pedis pul Vascular exam: PRESENT: normal capillary refill GI/Abdominal exam: PRESENT: normal bowel sounds, soft. ABSENT: distended, guarding, mass, organolmegaly, rebound, tenderness Rectal exam: PRESENT: deferred Extremities exam: PRESENT: full ROM. ABSENT: calf tenderness, clubbing, pedal edema Neurological exam: PRESENT: alert, awake, oriented to person, oriented to place, oriented to time, oriented to situation, CN II-XII grossly intact. ABSENT: motor sensory deficit Psychiatric exam: PRESENT: appropriate affect, normal mood. ABSENT: homicidal ideation, suicidal ideation Skin exam: PRESENT: dry, intact, warm. ABSENT: cyanosis, rash Results Laboratory Results: 01/22/20 07:45 01/22/20 07:45 01/22/20 01/22/20 01/22/20 07:45 07:45 07:45 WBC 18.5 H RBC 4.20 L Hgb 12.9 L Hct 37.2 L MCV 89 MCH 30.7 MCHC 34.5 RDW 13.1 Plt Count 354 Seg Neutrophils % Not Reportable Sodium 135.6 L Potassium 4.0 Chloride 102 Carbon Dioxide 27 Anion Gap 7 BUN 15 Creatinine 0.76 Est GFR ( Amer) > 60 Glucose 114 H Lactic Acid 0.9 Calcium 8.5 Total Bilirubin 0.7 AST 16 L Alkaline Phosphatase 69 Total Protein 6.5 Albumin 3.3 L Urine Color Urine Appearance Urine pH Ur Specific [place] Urine Protein Urine Glucose (UA) Urine Ketones Urine Blood Urine Nitrite Ur Leukocyte Esterase Urine WBC (Auto) Urine RBC (Auto) 01/22/20 01/22/20 08:50 10:55 WBC RBC Hgb Hct MCV MCH MCHC RDW Plt Count Seg Neutrophils % Sodium Potassium Chloride Carbon Dioxide Anion Gap BUN Creatinine Est GFR ( Amer) Glucose Lactic Acid 0.9 Calcium Total Bilirubin AST Alkaline Phosphatase Total Protein Albumin Urine Color YELLOW Urine Appearance SLIGHTLY-CLOUDY Urine pH 5.0 Ur Specific [place] 1.021 Urine Protein 100 H Urine Glucose (UA) NEGATIVE Urine Ketones NEGATIVE Urine Blood MODERATE H Urine Nitrite NEGATIVE Ur Leukocyte Esterase MODERATE H Urine WBC (Auto) 84 Urine RBC (Auto) 7 Assessment and Plan - Diagnosis (1) Positive blood cultures Is this a current diagnosis for this admission?: Yes Plan: Blood cultures (1 bottle set) growing gram-negative rods. Repeat blood cultures are pending. Urine culture pending. Patient is admitted to the medical floor. We will continue gentle IV fluids. Continue IV Rocephin. We will adjust the cultures result. (2) Acute pyelonephritis Is this a current diagnosis for this admission?: Yes Plan: Urinalysis positive for UTI. Recent abdominal CT showed ascending infection of the right ureter. With leukocytosis and bacteremia. Blood and urine cultures pending. As the patient has been taking oral ciprofloxacin with continued progression of his illness, will opt for IV Rocephin upon admission. He did receive IV Levaquin by ED provider prior to admission today. Analgesics and antiemetics as needed. Continue IV fluids. Encourage p.o. fluids. (3) Leukocytosis Is this a current diagnosis for this admission?: Yes Plan: Secondary to #1 and 2. Evaluation and management as above. (4) Hyperlipidemia Is this a current diagnosis for this admission?: Yes Plan: Vegetarian diet per patient request. Resume home medication once reconciled. - Time Time Spent with patient: 35 or more minutes Medications reviewed and adjusted accordingly: Yes Anticipated discharge: Home Within: within 72 hours - Inpatient Certification Based on my medical assessment, after consideration of the patient's comorbidities, presenting symptoms, or acuity I expect that the services needed warrant INPATIENT care.: Yes I certify that my determination is in accordance with my understanding of Medicare's requirements for reasonable and necessary INPATIENT services [42 CFR 412.3e].: Yes Medical Necessity: Need For IV Fluids, Need for IV Antibiotics
[2020-01-22] MEDS: ACETAMINOPHEN 325 MG TABLET PO PRN ×2 (14:11→22:05)
[2020-01-22] MEDS: KETOROLAC TROMETHAMINE INJ/PF 30 MG/1 ML SDV IV PRN ×2 (14:11→20:42)
[2020-01-22] MEDS: HEPARIN SOD (PORCINE) 5,000 UNIT/ML 1 ML VIAL SUBCUT SCH ×2 (14:11→23:14)
[2020-01-22] MEDS: FAMOTIDINE 20 MG TABLET PO SCH (22:05)
[2020-01-23] MEDS: HEPARIN SOD (PORCINE) 5,000 UNIT/ML 1 ML VIAL SUBCUT SCH ×3 (05:12→21:27)
[2020-01-23] MEDS: ACETAMINOPHEN 325 MG TABLET PO PRN ×2 (05:14→12:45)
[2020-01-23 06:33] LABS: ABSOLUTE LYMPHOCYTES (AUTO) 0.5 10^3/uL (0.5-4.7); ABSOLUTE MONOCYTES (AUTO) 0.8 10^3/uL (0.1-1.4); ABSOLUTE NEUT (AUTO) 6.8 10^3/uL (1.7-8.2); BASOPHILS % (AUTO) 0.2 % (0-2); HEMATOCRIT 35.5 % (37.9-51.0); HEMOGLOBIN 12.4 g/dL (13.5-17.0); LYMPHOCYTES % (AUTO) 6.1 % (13-45); MEAN CORPUSCULAR HEMOGLOBIN 30.6 pg (27.0-33.4); MEAN CORPUSCULAR HGB CONC 34.9 g/dL (32.0-36.0); MEAN CORPUSCULAR VOLUME 88 fl (80-97); MONOCYTES % (AUTO) 9.6 % (3-13); PLATELET COUNT 323 10^3/uL (150-450); RED BLOOD COUNT 4.04 10^6/uL (4.35-5.55); RED CELL DISTRIBUTION WIDTH 12.8 % (11.5-14.0); SEGMENTED NEUTROPHILS % (AUTO) 84.1 % (42-78); TOTAL CELLS COUNTED % (AUTO) 100 %
[2020-01-23 07:01] LABS: ANION GAP 7 (5-19); BLOOD UREA NITROGEN 11 mg/dL (7-20); CALCIUM 7.8 mg/dL (8.4-10.2); CARBON DIOXIDE 22 mmol/L (22-30); CHLORIDE 104 mmol/L (98-107); GLUCOSE 132 mg/dL (75-110); POTASSIUM 3.5 mmol/L (3.6-5.0)
[2020-01-23] MEDS: NORMAL SALINE 1000 ML 1,000 ML IV PRN ×2 (08:35→19:53)
[2020-01-23] MEDS: CEFTRIAXONE 2 GM/D5W RTU 2 GM/50 ML RTUPB IV SCH (09:15)
[2020-01-23] MEDS: DOCUSATE SODIUM 100 MG CAPSULE PO SCH (09:17)
[2020-01-23] MEDS: FAMOTIDINE 20 MG TABLET PO SCH ×2 (09:17→21:24)
--- NOTE | 2020-01-23 15:59 | PDOC PROGRESS REPORT ---
Subjective Progress Note for:: 01/23/20 Subjective:: KATHERYN COREAS is a 49 year old male with a past medical history significant for hyperlipidemia who was admitted for acute pyelonephritis and bacteremia. The patient was seen on morning rounds. He is found sitting upright to the chair, comfortably, on room air. He reports he is feeling much better today. He denies all symptoms and asks to be discharged home. He is reminded that I am waiting for his blood culture results as he had positive cultures during his prior ER visit. We will need those before we can determine safety of discharge on p.o. medications. He reports difficulty with back discomfort (chronic) and insomnia but declines offer for medication adjustments. He has no other questions or concerns at this time. Reason For Visit: E. COLI BACTEREMIA,PYELONEPHRITIS Physical Exam Vital Signs: Temp Pulse Resp BP Pulse Ox 99 F 69 18 124/81 100 01/23/20 14:35 01/23/20 09:00 01/23/20 09:00 01/23/20 09:00 01/23/20 09:00 Intake & Output 01/22/20 01/23/20 01/24/20 06:59 06:59 06:59 Intake Total 2820 1550 Balance 2820 1550 Weight 85.1 kg 88.1 kg General appearance: PRESENT: no acute distress, disheveled, well-developed, well-nourished Head exam: PRESENT: atraumatic, normocephalic Eye exam: PRESENT: conjunctiva pink, EOMI, PERRLA. ABSENT: scleral icterus Mouth exam: PRESENT: moist, tongue midline Teeth exam: PRESENT: poor dentation Respiratory exam: PRESENT: clear to auscultation pippa, symmetrical, unlabored. ABSENT: rales, rhonchi, wheezes Cardiovascular exam: PRESENT: RRR. ABSENT: diastolic murmur, rubs, systolic murmur Vascular exam: PRESENT: normal capillary refill Extremities exam: PRESENT: full ROM. ABSENT: calf tenderness, clubbing, pedal edema Neurological exam: PRESENT: alert, awake, oriented to person, oriented to place, oriented to time, oriented to situation, CN II-XII grossly intact. ABSENT: motor sensory deficit Psychiatric exam: PRESENT: anxious, normal mood. ABSENT: homicidal ideation, suicidal ideation Skin exam: PRESENT: dry, intact, warm. ABSENT: cyanosis, rash Results Laboratory Results: 01/23/20 05:51 01/23/20 05:51 01/23/20 01/23/20 05:51 05:51 WBC 8.0 RBC 4.04 L Hgb 12.4 L Hct 35.5 L MCV 88 MCH 30.6 MCHC 34.9 RDW 12.8 Plt Count 323 Seg Neutrophils % 84.1 H Sodium 133.4 L Potassium 3.5 L Chloride 104 Carbon Dioxide 22 Anion Gap 7 BUN 11 Creatinine 0.73 Est GFR ( Amer) > 60 Glucose 132 H Calcium 7.8 L Assessment and Plan - Diagnosis (1) Positive blood cultures Is this a current diagnosis for this admission?: Yes Plan: Blood cultures (01/21/20:1 bottle each set) growing E. coli; sensitivities pending. Repeat blood cultures are negative at 24 hrs Urine culture pending. Patient is admitted to the medical floor. We will continue gentle IV fluids. Continue IV Rocephin. We will adjust the cultures result. (2) Acute pyelonephritis Is this a current diagnosis for this admission?: Yes Plan: Urinalysis positive for UTI. Recent abdominal CT showed ascending infection of the right ureter. Leukocytosis has resolved. Blood and urine cultures as above. As the patient had been taking oral ciprofloxacin with continued progression of his illness; opted for IV Rocephin upon admission. Continue Rocephin; Day #2 Analgesics and antiemetics as needed. Continue IV fluids. Encourage p.o. fluids. (3) Leukocytosis Is this a current diagnosis for this admission?: Yes Plan: Resolved. Secondary to #1 and 2. Evaluation and management as above. (4) Hyperlipidemia Is this a current diagnosis for this admission?: Yes Plan: Vegetarian diet per patient request. (5) Difficulty sleeping Is this a current diagnosis for this admission?: Yes Plan: [facility] prn - Time Time Spent with patient: 25-34 minutes Medications reviewed and adjusted accordingly: Yes Anticipated discharge: Home
[2020-01-23] MEDS: ZOLPIDEM TARTRATE 5 MG TABLET PO PRN (21:24)
[2020-01-23] MEDS: KETOROLAC TROMETHAMINE INJ/PF 30 MG/1 ML SDV IV PRN (22:51)
[2020-01-24] MEDS: NORMAL SALINE 1000 ML 1,000 ML IV PRN ×3 (04:24→23:31)
[2020-01-24] MEDS: HEPARIN SOD (PORCINE) 5,000 UNIT/ML 1 ML VIAL SUBCUT SCH ×3 (05:02→22:06)
[2020-01-24 06:57] LABS: HEMATOCRIT 36.2 % (37.9-51.0); HEMOGLOBIN 12.3 g/dL (13.5-17.0); MEAN CORPUSCULAR HEMOGLOBIN 30.6 pg (27.0-33.4); MEAN CORPUSCULAR HGB CONC 34.1 g/dL (32.0-36.0); MEAN CORPUSCULAR VOLUME 90 fl (80-97); PLATELET COUNT 329 10^3/uL (150-450); RED BLOOD COUNT 4.02 10^6/uL (4.35-5.55); RED CELL DISTRIBUTION WIDTH 13.1 % (11.5-14.0); WHITE BLOOD COUNT 5.6 10^3/uL (4.0-10.5)
[2020-01-24 07:20] LABS: ANION GAP 7 (5-19); BLOOD UREA NITROGEN 8 mg/dL (7-20); CARBON DIOXIDE 24 mmol/L (22-30); CHLORIDE 106 mmol/L (98-107); GLUCOSE 97 mg/dL (75-110); POTASSIUM 3.9 mmol/L (3.6-5.0)
[2020-01-24] MEDS: FAMOTIDINE 20 MG TABLET PO SCH ×2 (09:12→22:07)
[2020-01-24] MEDS: CEFTRIAXONE 2 GM/D5W RTU 2 GM/50 ML RTUPB IV SCH (09:12)
[2020-01-24] MEDS: DOCUSATE SODIUM 100 MG CAPSULE PO SCH (09:12)
--- NOTE | 2020-01-24 13:22 | PDOC PROGRESS REPORT ---
Subjective Progress Note for:: 01/24/20 Subjective:: KATHERYN COREAS is a 49 year old male with a past medical history significant for hyperlipidemia who was admitted for acute pyelonephritis and bacteremia. The patient was seen on morning rounds. He is found sitting upright to the chair, comfortably, on room air. He reports he is feeling much better today. Asks to be discharged home; considers leaving AMA but ultimately agrees to go home. Hopefully can d/c tomorrow if fever is trending down (102.3/24 hrs). He reports difficulty with back discomfort (chronic) and insomnia but declines offer for medication adjustments. He has no other questions or concerns at this time. Denies chest pain, palpitations, dyspnea, cough, abdominal pain, nausea and vomiting. Reason For Visit: E. COLI BACTEREMIA,PYELONEPHRITIS Physical Exam Vital Signs: Temp Pulse Resp BP Pulse Ox 98.2 F 57 L 18 125/81 100 01/24/20 11:12 01/24/20 11:12 01/24/20 11:12 01/24/20 11:12 01/24/20 11:12 Intake & Output 01/23/20 01/24/20 01/25/20 06:59 06:59 06:59 Intake Total 2820 3900 980 Output Total 300 Balance 2820 3600 980 Weight 88.1 kg 90.4 kg General appearance: PRESENT: no acute distress, cooperative, disheveled, well- developed, well-nourished - overweight Head exam: PRESENT: atraumatic, normocephalic Eye exam: PRESENT: conjunctiva pink, EOMI, PERRLA. ABSENT: scleral icterus Mouth exam: PRESENT: moist, tongue midline Respiratory exam: PRESENT: clear to auscultation pippa, symmetrical, unlabored. ABSENT: rales, rhonchi, wheezes Cardiovascular exam: PRESENT: RRR, +S1, +S2. ABSENT: diastolic murmur, rubs, systolic murmur Vascular exam: PRESENT: normal capillary refill Extremities exam: PRESENT: full ROM. ABSENT: calf tenderness, clubbing, pedal edema Musculoskeletal exam: PRESENT: ambulatory Neurological exam: PRESENT: alert, awake, oriented to person, oriented to place, oriented to time, oriented to situation, CN II-XII grossly intact. ABSENT: motor sensory deficit Psychiatric exam: PRESENT: appropriate affect, normal mood. ABSENT: homicidal ideation, suicidal ideation Skin exam: PRESENT: dry, intact, warm. ABSENT: cyanosis, rash Results Laboratory Results: 01/24/20 05:49 01/24/20 05:49 01/24/20 01/24/20 05:49 05:49 WBC 5.6 RBC 4.02 L Hgb 12.3 L Hct 36.2 L MCV 90 MCH 30.6 MCHC 34.1 RDW 13.1 Plt Count 329 Sodium 137.3 Potassium 3.9 Chloride 106 Carbon Dioxide 24 Anion Gap 7 BUN 8 Creatinine 0.66 Est GFR ( Amer) > 60 Glucose 97 Calcium 8.0 L Assessment and Plan - Diagnosis (1) Positive blood cultures Is this a current diagnosis for this admission?: Yes Plan: Blood cultures (01/21/20:1 bottle each set) show elias-sensitive E. coli Repeat blood cultures are negative at 48 hrs Urine culture has no growth at 1 day (collected after IV rocephin started) Patient is admitted to the medical floor. We will continue gentle IV fluids. Continue IV Rocephin. Patient reports he has Cipro at home; I have asked him to verify the dose and pill count remaining. He may be able to resume his prior prescription at discharge (reports difficulty with finances). (2) Acute pyelonephritis Is this a current diagnosis for this admission?: Yes Plan: Improved; dysuria/frequency/hematuria have resolved, leukocytosis is resolved. Continues to febrile; Tmax 102.3 last 24 hrs. Urinalysis positive for UTI. Recent abdominal CT showed ascending infection of the right ureter. Blood and urine cultures as above. As the patient had been taking oral ciprofloxacin with continued progression of his illness; opted for IV Rocephin upon admission. Continue Rocephin; Day #3 Analgesics and antiemetics as needed. Continue IV fluids. Encourage p.o. fluids. (3) Leukocytosis Is this a current diagnosis for this admission?: Yes Plan: Resolved. Secondary to #1 and 2. Evaluation and management as above. (4) Hyperlipidemia Is this a current diagnosis for this admission?: Yes Plan: Vegetarian diet per patient request. (5) Difficulty sleeping Is this a current diagnosis for this admission?: Yes Plan: Melatonin qHS Ambien qHS prn (6) Chronic back pain Qualifiers: Back pain location: low back pain Back pain laterality: midline Sciatica presence: without sciatica Qualified Code(s): M54.5 - Low back pain; G89.29 - Other chronic pain Is this a current diagnosis for this admission?: Yes Plan: Declines oral medications. Trial Lidoderm patch. Nonpharmacological interventions encouraged. - Time Time Spent with patient: 25-34 minutes Medications reviewed and adjusted accordingly: Yes Anticipated discharge: Home Within: within 24 hours - if remains afebrile
[2020-01-24] MEDS: LIDOCAINE 5% (700 MG) TRANSDERMAL ADH..PATCH TP SCH (15:04)
[2020-01-24] MEDS ORDERED: MELATONIN 5 MG TABLET PO SCH (22:00)
[2020-01-24] MEDS: KETOROLAC TROMETHAMINE INJ/PF 30 MG/1 ML SDV IV PRN (22:10)
[2020-01-24] MEDS: ZOLPIDEM TARTRATE 5 MG TABLET PO PRN (22:11)
[2020-01-25] MEDS: HEPARIN SOD (PORCINE) 5,000 UNIT/ML 1 ML VIAL SUBCUT SCH (06:03)
[2020-01-25] MEDS: NORMAL SALINE 1000 ML 1,000 ML IV PRN (08:58)
[2020-01-25] MEDS: CEFTRIAXONE 2 GM/D5W RTU 2 GM/50 ML RTUPB IV SCH (08:59)
[2020-01-25] MEDS: DOCUSATE SODIUM 100 MG CAPSULE PO SCH (09:01)
[2020-01-25] MEDS: FAMOTIDINE 20 MG TABLET PO SCH (09:02)
[2020-01-25] MEDS: LIDOCAINE 5% (700 MG) TRANSDERMAL ADH..PATCH TP SCH (09:02)
[2020-01-25 10:54] VITALS: BP 125/71
--- NOTE | 2020-01-25 18:50 | PDOC DISCHARGE SUMMARY ---
Impression - Admit/DC Date/PCP Admission Date/Primary Care Provider: 01/22/20 12:39 Discharge Date: 01/25/20 - Discharge Diagnosis (1) Positive blood cultures Is this a current diagnosis for this admission?: Yes (2) Acute pyelonephritis Is this a current diagnosis for this admission?: Yes (3) Leukocytosis Is this a current diagnosis for this admission?: Yes (4) Hyperlipidemia Is this a current diagnosis for this admission?: Yes (5) Difficulty sleeping Is this a current diagnosis for this admission?: Yes (6) Chronic back pain Is this a current diagnosis for this admission?: Yes - Additional Information Resuscitation Status: Full Code Discharge Diet: Regular, Other (Comments) Discharge Activity: Activity As Tolerated Referrals: AMANDA LAWRENCE MD [ACTIVE STAFF] - 02/02/20 10:15 am (WITH PA) Prescriptions: Zolpidem Tartrate [Ambien 5 mg Tablet] 5 mg PO HSP PRN #7 tablet PRN Reason: Ciprofloxacin HCl [Cipro 500 mg Tablet] 500 mg PO BID #20 tablet Tramadol HCl [Ultram 50 mg Tablet] 50 mg PO Q6HP PRN #20 tablet PRN Reason: Home Medications: Acetaminophen [Tylenol 325 mg Tablet] 650 mg PO Q4HP PRN tablet 01/25/20 Ciprofloxacin HCl [Cipro 500 mg Tablet] 500 mg PO BID #20 tablet 01/25/20 Tramadol HCl [Ultram 50 mg Tablet] 50 mg PO Q6HP PRN #20 tablet 01/25/20 Zolpidem Tartrate [Ambien 5 mg Tablet] 5 mg PO HSP PRN #7 tablet 01/25/20 History of Present Illiness History of Present Illness: KATHERYN COREAS is a 49 year old male with a past medical history significant for hyperlipidemia. Patient has presented to the emergency department 2 times over the prior week for UTI symptoms; discharged home each time with oral antibiotics. However, blood cultures obtained yesterday (1 bottle each set) are now growing gram-negative rods. Therefore, the patient was called back to the emergency department to be admitted for bacteremia. Evaluation emergency department revealed stable vital signs, leukocytosis (WBC 18.5), unremarkable chemistry, and urine suggestive of UTI. Lactic acid negative x3. He is referred to the hospitalist service for admission and management of the above-stated complaints and findings. Hospital Course Hospital Course: (1) Positive blood cultures Blood cultures (01/21/20:1 bottle each set) show elias-sensitive E. coli Repeat blood cultures are negative at 72 hrs Urine culture has no growth at 2 days (collected after IV rocephin started) She was noted to the medical floor and provided IV fluids. He was empirically placed on Ceftriaxone 2 g daily; received 3 doses. Patient confirms he has Cipro 500 mg (#19 tabs) at home; resume Rx at discharge. He is advised to return to the emergency department as needed for concerning symptoms; especially persistent fevers. (2) Acute pyelonephritis Improved; dysuria/frequency/hematuria have resolved, leukocytosis is resolved. Continues to febrile; Tmax 102.3 last 24 hrs. Urinalysis positive for UTI. Recent abdominal CT showed ascending infection of the right ureter. Blood and urine cultures as above. IV Rocephin; Day #3 Transition to p.o. ciprofloxacin at discharge as described above. Encouraged to drink plenty of fluids. (3) Leukocytosis Resolved. Secondary to #1 and 2. Evaluation and management as above. (4) Hyperlipidemia Vegetarian diet per patient request. (5) Difficulty sleeping Melatonin qHS Ambien qHS prn (6) Chronic back pain Declined oral medications. Trial of Lidoderm patches without much relief. Nonpharmacological interventions are encouraged. Physical Exam Vital Signs: Temp Pulse Resp BP Pulse Ox 97.3 F 57 L 18 125/71 100 01/25/20 10:49 01/25/20 10:49 01/25/20 10:49 01/25/20 10:49 01/25/20 10:49 Intake & Output 01/24/20 01/25/20 01/26/20 06:59 06:59 06:59 Intake Total 3900 3570 1000 Output Total 300 Balance 3600 3570 1000 Weight 90.4 kg 90.4 kg General appearance: PRESENT: no acute distress, cooperative, well-developed, well-nourished Head exam: PRESENT: atraumatic, normocephalic Eye exam: PRESENT: conjunctiva pink, EOMI, PERRLA. ABSENT: scleral icterus Mouth exam: PRESENT: moist, tongue midline Respiratory exam: PRESENT: clear to auscultation pippa, symmetrical, unlabored. ABSENT: rales, rhonchi, wheezes Cardiovascular exam: PRESENT: RRR. ABSENT: diastolic murmur, rubs, systolic murmur Vascular exam: PRESENT: normal capillary refill GI/Abdominal exam: PRESENT: normal bowel sounds, soft. ABSENT: distended, guarding, mass, organolmegaly, rebound, tenderness Rectal exam: PRESENT: deferred Extremities exam: PRESENT: full ROM. ABSENT: calf tenderness, clubbing, pedal edema Musculoskeletal exam: PRESENT: ambulatory Neurological exam: PRESENT: alert, awake, oriented to person, oriented to place, oriented to time, oriented to situation, CN II-XII grossly intact. ABSENT: motor sensory deficit Psychiatric exam: PRESENT: appropriate affect, normal mood. ABSENT: homicidal ideation, suicidal ideation Skin exam: PRESENT: dry, intact, warm. ABSENT: cyanosis, rash Results Laboratory Results: WBC 5.6 10^3/uL (4.0-10.5) 01/24/20 05:49 RBC 4.02 10^6/uL (4.35-5.55) L 01/24/20 05:49 Hgb 12.3 g/dL (13.5-17.0) L 01/24/20 05:49 Hct 36.2 % (37.9-51.0) L 01/24/20 05:49 MCV 90 fl (80-97) 01/24/20 05:49 MCH 30.6 pg (27.0-33.4) 01/24/20 05:49 MCHC 34.1 g/dL (32.0-36.0) 01/24/20 05:49 RDW 13.1 % (11.5-14.0) 01/24/20 05:49 Plt Count 329 10^3/uL (150-450) 01/24/20 05:49 Lymph % (Auto) 6.1 % (13-45) L 01/23/20 05:51 [place] % (Auto) 9.6 % (3-13) 01/23/20 05:51 Eos % (Auto) 0.0 % (0-6) 01/23/20 05:51 Baso % (Auto) 0.2 % (0-2) 01/23/20 05:51 Absolute Neuts (auto) 6.8 10^3/uL (1.7-8.2) 01/23/20 05:51 Absolute Lymphs (auto) 0.5 10^3/uL (0.5-4.7) 01/23/20 05:51 Absolute Monos (auto) 0.8 10^3/uL (0.1-1.4) 01/23/20 05:51 Absolute Eos (auto) 0.0 10^3/uL (0.0-0.6) 01/23/20 05:51 Absolute Basos (auto) 0.0 10^3/uL (0.0-0.2) 01/23/20 05:51 Total Counted 100 01/22/20 07:45 Seg Neutrophils % 84.1 % (42-78) H 01/23/20 05:51 Seg Neuts % (Manual) 87 % (42-78) H 01/22/20 07:45 Lymphocytes % (Manual) 9 % (13-45) L 01/22/20 07:45 Monocytes % (Manual) 4 % (3-13) 01/22/20 07:45 Eosinophils % (Manual) 0 % (0-6) 01/22/20 07:45 Basophils % (Manual) 0 % (0-2) 01/22/20 07:45 Abs Neuts (Manual) 16.1 10^3/uL (1.7-8.2) H 01/22/20 07:45 Abs Lymphs (Manual) 1.7 10^3/uL (0.5-4.7) 01/22/20 07:45 Abs Monocytes (Manual) 0.7 10^3/uL (0.1-1.4) 01/22/20 07:45 Absolute Eos (Manual) 0.0 10^3/uL (0.0-0.6) 01/22/20 07:45 Abs Basophils (Manual) 0.0 10^3/uL (0.0-0.2) 01/22/20 07:45 Platelet Comment ADEQUATE 01/22/20 07:45 RBC Morph Comment NORMO-CYTIC/CHROMIC 01/22/20 07:45 Sodium 137.3 mmol/L (137-145) 01/24/20 05:49 Potassium 3.9 mmol/L (3.6-5.0) 01/24/20 05:49 Chloride 106 mmol/L (98-107) 01/24/20 05:49 Carbon Dioxide 24 mmol/L (22-30) 01/24/20 05:49 Anion Gap 7 (5-19) 01/24/20 05:49 BUN 8 mg/dL (7-20) 01/24/20 05:49 Creatinine 0.66 mg/dL (0.52-1.25) 01/24/20 05:49 Est GFR ( Amer) > 60 (>60) 01/24/20 05:49 Est GFR (MDRD) Non-Af > 60 (>60) 01/24/20 05:49 Glucose 97 mg/dL (75-110) 01/24/20 05:49 Lactic Acid 1.2 mmol/L (0.7-2.1) 01/22/20 13:17 Calcium 8.0 mg/dL (8.4-10.2) L 01/24/20 05:49 Total Bilirubin 0.7 mg/dL (0.2-1.3) 01/22/20 07:45 Direct Bilirubin 0.0 mg/dL (0.0-0.4) 01/22/20 07:45 Neonat Total Bilirubin Not Reportable 01/22/20 07:45 Neonat Direct Bilirubin Not Reportable 01/22/20 07:45 Neonat Indirect Bili Not Reportable 01/22/20 07:45 AST 16 U/L (17-59) L 01/22/20 07:45 ALT 18 U/L (<50) 01/22/20 07:45 Alkaline Phosphatase 69 U/L (38-126) 01/22/20 07:45 Total Protein 6.5 g/dL (6.3-8.2) 01/22/20 07:45 Albumin 3.3 g/dL (3.5-5.0) L 01/22/20 07:45 Urine Color YELLOW 01/22/20 08:50 Urine Appearance SLIGHTLY-CLOUDY 01/22/20 08:50 Urine pH 5.0 (5.0-9.0) 01/22/20 08:50 Ur Specific [place] 1.021 01/22/20 08:50 Urine Protein 100 mg/dL (NEGATIVE) H 01/22/20 08:50 Urine Glucose (UA) NEGATIVE mg/dL (NEGATIVE) 01/22/20 08:50 Urine Ketones NEGATIVE mg/dL (NEGATIVE) 01/22/20 08:50 Urine Blood MODERATE (NEGATIVE) H 01/22/20 08:50 Urine Nitrite NEGATIVE (NEGATIVE) 01/22/20 08:50 Urine Bilirubin NEGATIVE (NEGATIVE) 01/22/20 08:50 Urine Urobilinogen NEGATIVE mg/dL (<2.0) 01/22/20 08:50 Ur Leukocyte Esterase MODERATE (NEGATIVE) H 01/22/20 08:50 Urine WBC (Auto) 84 /HPF 01/22/20 08:50 Urine RBC (Auto) 7 /HPF 01/22/20 08:50 U Non-Squamous Epis Auto 1 /HPF 01/22/20 08:50 Urine Mucus (Auto) FEW /LPF 01/22/20 08:50 Urine Ascorbic Acid NEGATIVE (NEGATIVE) 01/22/20 08:50 Plan Plan of Treatment: Patient is discharged home in stable condition. Follow-up with your primary care provider within 1 week. Resume Ciprofloxacin; patient has confirmed that he has Cipro 500mg BID #19. Take your other medication as prescribed. Eat a heart healthy diet. Drink plenty of water. Do NOT smoke. Return to emergency department as needed for concerning symptoms. Stroke Is this a Stroke Patient?: No Acute Heart Failure - Is this a Heart Failure Patient?: No
== END 2020-01-25 11:10 | disposition home or self-care (01) | DRG 690 ==
LOC: ER 06:01 → EH 12:39 → 4S 13:40
PROVIDERS: ADMIT Family Medicine; ATTEND Registered Nurse
DX: N39.0 Urinary tract infection, site not specified (principal); E78.5 Hyperlipidemia, unspecified; D72.829 Elevated white blood cell count, unspecified; G47.00 Insomnia, unspecified; M54.5 Low back pain; B96.20 Unspecified Escherichia coli [E. coli] as the cause of diseases classified elsewhere
CPT/HCPCS: 36415; 80048; 80053; 81001; 83605; 85025; 85027; 87040; 87086; 96365; 96366; 99284; J0696; J1885; J1956; J7030